=== PATIENT | female | born 1945 | race African-American/Black ===

== ENCOUNTER 2018-11-06 15:16 | Emergency (ER) | payer OTHER ==
[2018-11-06 15:32] VITALS: TEMP 98.5; BMI 20.2
--- NOTE | 2018-11-06 15:34 | PDOC ---
Rapid Medical Evaluation Time Seen by Provider: 11/06/18 15:27 Medical Evaluation: Allergies Allergy/AdvReac Type Severity Reaction Status Date / Time No Known Allergies Allergy Verified 11/06/18 15:27 11/06/18 15:27 The patient presents for palpitations and dizziness. She palpitations starting this morning. She states that she has had palpitations intermittently for years. Exam: RRR, S1S2 no m/r/g Orders: labs, ekg Pt to proceed to the ER for further evaluation Discharge Disposition - Diagnosis Palpitation - Referrals - Patient Instructions - Post Discharge Activity
--- NOTE | 2018-11-06 16:29 | PDOC ---
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 States she was cleaning this AM when she felt her heart beating abnl - states it felt like there was a fight in her chest - her heart was jumping around. Pt denies assoc cp or sob. No f/c. No cough. No abd pain. No n/v/d. No dysuria. NO LE swelling or calf cramping. Pt states symptoms resolved after about 30 min. Pt states she has felt these symptoms for the last few weeks and was admitted at [facility] for 3 days for eval. Saw Dr. Key 2 days ago and started on Toprol. Pt currently denies all complaints. PMD Dr. Washington. 11/06/18 17:22 - Physicial Exam PE: 11/06/18 17:21 Gen: aaox3, nad heart: +s1s2 reg lungs: cta b/l abd: soft, nt/nd +bs ext: no c/c/e. no calf ttp neuro: cn ii-xii grossly intact, no focal deficits, moves all extremities - Medical Decision Making 11/06/18 17:22 a/p: 73yo female with palpitations and dizziness -states dizziness felt like the room was spinning - denies ear pain or tinnitus -no cp -will check labs, tsh -will obtain orthostatic vs -will call dr. Key to discuss the case -will monitor in the ED -hx of ITP - pt with labs from prior hospitalization - will make sure at baseline. -pt currently asymptomatic. 11/06/18 17:47 cxr clear labs similar to last visit from [facility] 11/06/18 17:47 trop neg 11/06/18 18:23 tsh normal resident discussed the case with Dr. Key who recommends office visit tomorrow resident updated pt who agrees with the plan daughter at the bedside who agrees with the plan no orthostatic vs pt stable for dc to home Heart Score/ECG Review - ECG Intrepretation Comment:: 11/06/18 17:24 sinus at 62, pac, nl axis, nl interval, no acute st/t wave findings
[2018-11-06 16:42] LABS: BASO % 0.7 % (0-2.0); HEMATOCRIT 36.2 % (32.4-45.2); LYMPH % 39.1 % (8-40); MCH 31.7 pg (25.7-33.7); MEAN CELL VOLUME 95.8 fl (80-96); MEAN PLT VOLUME 9.5 fl (7.5-11.1); MONO % 7.2 % (3.8-10.2); PLATELET COUNT 100 K/MM3 (134-434); RBC 3.78 M/mm3 (3.60-5.2); RDW 13.1 % (11.6-15.6); WHITE BLOOD COUNT 2.7 K/mm3 (4.0-10.0)
--- NOTE | 2018-11-06 16:48 | PDOC ---
History of Present Illness - General Chief Complaint: Palpitations Stated Complaint: PALPITATIONS/DIZZINESS Time Seen by Provider: 11/06/18 15:27 History Source: Patient Exam Limitations: No Limitations - History of Present Illness Initial Comments: 11/06/18 16:48 73 yo F with a hx of HTN (on metoprolol), ITP (followed by Dr. Serrano; last surveillance 2 months ago), and Sjogren's disease (not currently on medication) presents to the emergency department with palpitations that occurred last night around 12 am. Per the patient, she was recently seen at [facility] for palpitations (09/29/2018) and had a negative work up for arrhythmia. Per the patient, she had concurrent dizziness with spinning sensation that was different from her previous palpitations episodes. She was cleaning her house when she had the onset of symptoms and they persisted when she went to bed and awoke this morning. Currently asymptomatic. Denies the following: fever, chills , SOB, chest pain, abdominal pain, dysuria, diarrhea, and leg pain/swelling. Allergies: NKDA Social: Denies tobacco, alcohol, and substance abuse. Past History - Past Medical History Allergies/Adverse Reactions: Allergies Allergy/AdvReac Type Severity Reaction Status Date / Time No Known Allergies Allergy Verified 11/06/18 15:27 Home Medications: Ambulatory Orders Metoprolol Succinate 12.5 mg PO DAILY 11/06/18 Cardiac Disorders: (Palpitations) COPD: No GI Disorders: Yes (DIVERTICULOSIS, GERD) - Surgical History Cardiac Surgery: Yes (ARRYTHMIA) - Suicide/Smoking/Psychosocial Hx Smoking History: Never smoked Have you smoked in the past 12 months: No Hx Alcohol Use: No Drug/Substance Use Hx: No Substance Use Type: None Review of Systems - Review of Systems Able to Perform ROS?: Yes Is the patient limited Sami proficient: No Constitutional: No: Chills, Diaphoresis, Fever, Weakness HEENTM: No: Eye Pain, Ear Pain, Nose Pain, Throat Pain, Mouth Pain Respiratory: No: Cough, Shortness of Breath, Hemoptysis Cardiac (ROS): Yes: Palpitations. No: Chest Pain, Lightheadedness, Syncope, Chest Tightness ABD/GI: No: Constipated, Diarrhea, Nausea, Rectal Bleeding, Vomiting, Tarry Stools : No: Burning, Dysuria, Hematuria Musculoskeletal: No: Back Pain, Joint Pain, Neck Pain Integumentary: No: Bruising, Erythema, Rash Neurological: Yes: Dizziness. No: Headache, Numbness, Tingling, Tremors Psychiatric: No: Change in Appetite Endocrine: No: Unexplained Weight Gain Hematologic/Lymphatic: No: Anemia *Physical Exam - Vital Signs Last Vital Signs Temp Pulse Resp BP Pulse Ox 98.5 F 65 18 123/73 99 11/06/18 15:28 11/06/18 15:28 11/06/18 15:28 11/06/18 15:28 11/06/18 15:28 - Physical Exam General Appearance: Yes: Nourished, Appropriately Dressed, Thin. No: Apparent Distress, Intoxicated HEENT: positive: EOMI, VIKY, Normal Voice, Symmetrical, Pharynx Normal, Hearing Grossly Normal. negative: Pale Conjunctivae, Scleral Icterus (R), Scleral Icterus (L), Muffled/Hoarse voice, Pharyngeal Erythema, Tonsillar Exudate, Tonsillar Erythema, Nasal Congestion, Rhinorrhea, Excessive drooling Neck: positive: Trachea midline, Supple. negative: Tender, Lymphadenopathy (R) , Lymphadenopathy (L), Tender lateral, Tender midline Respiratory/Chest: positive: Lungs Clear, Normal Breath Sounds. negative: Chest Tender, Accessory Muscle Use, Rhonchi, Stridor, Wheezing Cardiovascular: positive: Regular Rhythm, Regular Rate, S1, S2. negative: Systolic Murmur Gastrointestinal/Abdominal: positive: Normal Bowel Sounds, Flat, Soft. negative : Tender, Distended, Guarding, Rebound Lymphatic: negative: Adenopathy Musculoskeletal: positive: Normal Inspection. negative: CVA Tenderness, Vertebral Tenderness Extremity: positive: Normal Capillary Refill, Normal Inspection, Normal Range of Motion. negative: Tender Integumentary: positive: Normal Color, Dry, Warm Neurologic: positive: radial drill operator II-XII NML intact, Fully Oriented, Alert, Normal Mood/ Affect, Normal Response, Motor Strength 5/5 ED Treatment Course - LABORATORY CBC & Chemistry Diagram: 11/06/18 15:49 11/06/18 15:49 Medical Decision Making - Medical Decision Making 73 yo F with a hx of HTN (on metoprolol), ITP (followed by Dr. Serrano; last surveillance 2 months ago), and Sjogren's disease (not currently on medication) presents to the emergency department with palpitations that occurred last night around 12 am. Initial vitals: Initial Vital Signs Temp Pulse Resp BP Pulse Ox 98.5 F 65 18 123/73 99 11/06/18 15:28 11/06/18 15:28 11/06/18 15:28 11/06/18 15:28 11/06/18 15:28 Work up ddx: palpitations 2/2 arrhythmia. Laboratory Tests 11/06/18 11/06/18 11/06/18 15:49 15:49 15:49 WBC 2.7 L RBC 3.78 Hgb 12.0 Hct 36.2 MCV 95.8 MCH 31.7 MCHC 33.0 RDW 13.1 Plt Count 100 L D MPV 9.5 Absolute Neuts (auto) 1.4 L Neutrophils % 53.0 D Lymphocytes % 39.1 Monocytes % 7.2 Eosinophils % 0.0 D Basophils % 0.7 Nucleated RBC % 0 PT with INR 12.40 INR 1.05 Sodium 138 Potassium 4.9 Chloride 104 Carbon Dioxide 28 Anion Gap 5 L BUN 13.7 Creatinine 0.6 Est GFR (CKD-EPI)AfAm 103.34 Est GFR (CKD-EPI)NonAf 89.16 Random Glucose 90 Calcium 9.2 Magnesium 2.1 Total Bilirubin 0.7 AST 26 ALT 22 Alkaline Phosphatase 52 Creatine Kinase 140 Troponin I < 0.02 Total Protein 7.6 Albumin 3.6 TSH 1.30 Troponin negative. EKG shows NSR with PACs. Patient had no ST elevation or depression. Patient continues to remain asymptomatic. Spoke to patient's open tenter operator Dr. Mera. She was seen in the office 2 days prior to presentation. She had an EKG showing PACs in the office with her last holter monitor 2-3 years ago that showed no sustained events. cardiac MRI in [address] Mera, will see the patient tomorrow and is comfortable with discharge from the ED with negative troponin. Patient orthostatics: Supine: Pulse 58, left radial pulse strong/regular. O2 sat 100% on RA. RR 21. BP 134/71 on left arm. 90 mAP Sitting: pulse 65 radial left strong/regular pulse. O2 sat 100% on RA. bp 140/ 89 L arm, 104 MAP Standing: Pulse 52, left radial strong/regular pulse. O2 sat 100% on room air. 128/85 L arm. 98 mAP. Patient to be discharged with f/u with her open tenter operator. Dispo; Discharge *DC/Admit/Observation/Transfer Diagnosis at time of Disposition: Palpitation - Discharge Dispostion Disposition: HOME Decision to Admit order: No - Referrals Referrals: Deepa Mera MD [Non Staff, Medical] - - Patient Instructions Printed Discharge Instructions: DI for Arrhythmias, DI for Palpitations Additional Instructions: You were seen in the emergency department for your palpitations. Your EKG was within normal limits and you had a negative troponin. I spoke to your open tenter operator who states she wants to see you tomorrow for follow up. Please return to the emergency department if you have worsening pain or new concerning symptoms. Please keep to your open tenter operator appointment. Thank you. - Post Discharge Activity
[2018-11-06 17:10] LABS: ALBUMIN 3.6 g/dl (3.4-5.0); ALK PHOS 52 U/L (45-117); ANION GAP 5 MMOL/L (8-16); BILIRUBIN,TOTAL 0.7 mg/dL (0.2-1); BLOOD UREA NITROGEN 13.7 mg/dL (7-18); CALCIUM 9.2 mg/dL (8.5-10.1); CHLORIDE 104 mmol/L (98-107); CO2 28 mmol/L (21-32); CREATININE 0.6 mg/dL (0.55-1.3); GLUCOSE,RANDOM 90 mg/dL (74-106); MAGNESIUM 2.1 mg/dL (1.8-2.4); POTASSIUM 4.9 mmol/L (3.5-5.1); SGOT/AST 26 U/L (15-37); SGPT/ALT 22 U/L (13-61); SODIUM 138 mmol/L (136-145); TOT PROT 7.6 g/dl (6.4-8.2)
[2018-11-06 17:27] LABS: INR 1.05 (0.83-1.09); PROTHROMBIN TIME (PATIENT) 12.4 SEC (9.7-13.0)
[2018-11-06 18:30] VITALS: BP 136/78; PULSE 60
--- NOTE | 2018-11-07 15:29 | EKG ---
Test Reason : Blood Pressure : / mmHG Vent. Rate : 062 BPM Atrial Rate : 062 BPM P-R Int : 170 ms QRS Dur : 068 ms QT Int : 394 ms P-R-T Axes : 078 073 065 degrees QTc Int : 399 ms SINUS RHYTHM WITH PREMATURE ATRIAL COMPLEXES WITH ABERRANT CONDUCTION POSSIBLE LEFT ATRIAL ENLARGEMENT BORDERLINE ECG WHEN COMPARED WITH ECG OF 22-JAN-2014 09:02, ABERRANT CONDUCTION IS NOW PRESENT Confirmed by HUMERA YOON, LUCAS ([id number]) on 11/07/2018 3:29:30 PM Referred By: Confirmed By:LUCAS GRUBBS MD
== END 2018-11-06 18:46 | disposition home or self-care (01) ==
LOC: JER 15:16
DX: R00.2 Palpitations (principal); I10 Essential (primary) hypertension; D69.3 Immune thrombocytopenic purpura; M35.00 Sjogren syndrome, unspecified
CPT/HCPCS: 36415; 71046-TC-FY; 80053; 82550; 83735; 84443; 84484; 85025; 85610; 93005; 93010; 99284-25

== ENCOUNTER 2019-03-04 19:50 | Emergency (ER) | payer OTHER ==
[2019-03-04 20:12] VITALS: BP 97/53; PULSE 84; TEMP 99.3
--- NOTE | 2019-03-04 21:02 | PDOC ---
History of Present Illness - General Chief Complaint: Cold Symptoms Stated Complaint: COUGH Time Seen by Provider: 03/04/19 20:17 History Source: Patient Exam Limitations: No Limitations - History of Present Illness Initial Comments: 03/04/19 20:54 73-year-old female brought in for evaluation of white productive cough for the past 2 to 3 days along with generalized fatigue. Patient has no complaints of fever, abdominal pain, lower extremity edema, headache, recent travel, recent illness or recent change in medications. Patient denies smoking in the home Is this a multiple visit Asthma Patient?: No Timing/Duration: reports: other (2-3 days) Severity: reports: mild Associated Symptoms: reports: cough, other (Fatigue) Past History - Travel Traveled outside of the country in the last 30 days: No Close contact w/someone who was outside of country & ill: No - Past Medical History Allergies/Adverse Reactions: Allergies Allergy/AdvReac Type Severity Reaction Status Date / Time No Known Allergies Allergy Verified 11/06/18 15:27 Home Medications: Ambulatory Orders Metoprolol Succinate 12.5 mg PO DAILY 11/06/18 Cardiac Disorders: (Palpitations) COPD: No GI Disorders: Yes (DIVERTICULOSIS, GERD) Other medical history: ITP - Surgical History Cardiac Surgery: Yes (ARRYTHMIA) - Psycho Social/Smoking Cessation Hx Smoking History: Never smoked Have you smoked in the past 12 months: No Hx Alcohol Use: No Drug/Substance Use Hx: No Substance Use Type: None Patient Lives Alone: No Lives with/in: Daughter Review of Systems - Review of Systems Able to Perform ROS?: Yes Constitutional: Yes: Weakness, Weight Stable. No: Chills, Fever, Loss of Appetite HEENTM: No: Symptoms Reported Respiratory: Yes: Cough, Productive cough Cardiac (ROS): No: Symptoms Reported ABD/GI: No: Symptoms Reported : No: Symptoms Reported Musculoskeletal: No: Symptoms Reported Integumentary: No: Symptoms Reported Neurological: Yes: Weakness (Mild generalized) Hematologic/Lymphatic: No: Symptoms Reported *Physical Exam - Vital Signs Last Vital Signs Temp Pulse Resp BP Pulse Ox 99.3 F 84 20 97/53 L 98 03/04/19 20:07 03/04/19 20:07 03/04/19 20:07 03/04/19 20:07 03/04/19 20:07 - Physical Exam General Appearance: Yes: Nourished, Appropriately Dressed. No: Apparent Distress HEENT: positive: TMs Normal, Pharynx Normal. negative: Pale Conjunctivae Neck: positive: Supple Respiratory/Chest: positive: Crackles (Inspiratory crackles to right and left lower base). negative: Respiratory Distress, Accessory Muscle Use Cardiovascular: positive: Regular Rhythm, Regular Rate. negative: Murmur Gastrointestinal/Abdominal: positive: Soft. negative: Tenderness Extremity: positive: Normal Inspection Integumentary: positive: Normal Color, Warm, Moist Neurologic: positive: Motor Strength 5/5 (Ambulatory) ED Treatment Course - RADIOLOGY Radiology Studies Ordered: Category Date Time Status CHEST PA & LAT [RAD] Stat Radiology 03/04/19 20:30 Taken Medical Decision Making - Medical Decision Making 03/04/19 21:02 Chief complaint: Cough and fatigue for the past 2 to 3 days. Exam. Patient with inspiratory crackles noted to left and right bases. Plan: Chest x-ray. 03/04/19 21:26 Chest x-ray negative for acute pathology. Patient will be discharged home with a Z-Wilder for treatment of bronchitis. Discharge - Discharge Information Problems reviewed: Yes Clinical Impression/Diagnosis: Bronchitis Condition: Good Disposition: HOME - Follow up/Referral - Patient Discharge Instructions Patient Printed Discharge Instructions: DI for Acute Bronchitis Additional Instructions: Drink plenty of fluids. Eat well-balanced meals throughout the day. Take antibiotics as prescribed. Keep nasal passages clear cover mouth when coughing and wash hands frequently. - Post Discharge Activity
== END 2019-03-04 21:50 | disposition home or self-care (01) ==
LOC: JERFT 19:50
DX: J40 Bronchitis, not specified as acute or chronic (principal); R53.1 Weakness; R00.2 Palpitations; K21.9 Gastro-esophageal reflux disease without esophagitis; I49.9 Cardiac arrhythmia, unspecified; D69.3 Immune thrombocytopenic purpura
CPT/HCPCS: 71046-TC-FY; 99282-25

== ENCOUNTER 2019-04-27 09:14 | Emergency (ER) | payer OTHER ==
[2019-04-27 09:28] VITALS: TEMP 98; BMI 20.2
[2019-04-27] MEDS ORDERED: METOPROLOL TARTRATE 25 MG TABLET (FP) PO ONE (10:02)
[2019-04-27] MEDS ORDERED: METOPROLOL TARTRATE 25 MG TABLET (FP) ONE (10:19)
--- NOTE | 2019-04-27 10:20 | PDOC ---
Documentation entered by Anthony Hoang SCRIBE, acting as scribe for Dana Morejon MD. Dana Morejon MD: This documentation has been prepared by the Viktor harper Daniel, SCRIBE, under my direction and personally reviewed by me in its entirety. I confirm that the documentation accurately reflects all work, treatment, procedures, and medical decision making performed by me. History of Present Illness - General Chief Complaint: Palpitations Stated Complaint: PALPITATIONS/DIZZINESS Time Seen by Provider: 04/27/19 09:35 History Source: Patient Exam Limitations: No Limitations - History of Present Illness Initial Comments: 04/27/19 09:53 The patient is a 74 year old female with a past medical history of ITP, HTN, and Sjogrens syndrome, GERD here today for evaluation of room spinning dizziness and palpitations, since resolved. The patient reports that between 12- 3am last night she developed room spinning dizziness, palpitations, and a sharp chest pain that went across her chest and only lasted for a few seconds. She states that her symptoms resolved on their own and notes previous episodes. She also notes that she has had 1 week of ringing in the ears and had bronchitis a few weeks ago. Patient reports that she currently has no symptoms. Patient denies headache. Denies fever, chills. Denies shortness of breath. Denies nausea, vomiting, diarrhea, abdominal pain. Denies lower extremity edema. Denies urinary symptoms. Denies neurologic symptoms. Denies travel. Allergies: NKA Social history: Denies tobacco, alcohol, and illicit drug use. 04/27/19 10:18 Past History - Past Medical History Allergies/Adverse Reactions: Allergies Allergy/AdvReac Type Severity Reaction Status Date / Time No Known Allergies Allergy Verified 04/27/19 09:19 Home Medications: Ambulatory Orders Metoprolol Succinate 12.5 mg PO DAILY 11/06/18 Azithromycin [Zithromax Tri-Wilder (3 DAYS) -] 500 mg PO DAILY #3 tablet 03/04/19 Cardiac Disorders: (Palpitations) COPD: No Dementia: Yes (alzheimers) GI Disorders: Yes (DIVERTICULOSIS, GERD) - Surgical History Cardiac Surgery: Yes (ARRYTHMIA) - Psycho Social/Smoking Cessation Hx Smoking History: Never smoked Have you smoked in the past 12 months: No Hx Alcohol Use: No Drug/Substance Use Hx: No Substance Use Type: None Review of Systems - Review of Systems Able to Perform ROS?: Yes Comments:: 04/27/19 09:53 Constitutional: no fevers or chills. No weakness HEENT: +room spinning dizziness. no headache. No congestion. No visual/hearing disturbances. CVS: +chest pain. +palpitations. no syncope. Resp: no sob. No cough. Gastrointestinal: no abdominal pain, nausea, vomiting, diarrhea. Genitourinary: no urinary sx, hematuria. MUSCULOSKELETAL: No joint pain and swelling. No neck or back pain. SKIN: no redness or skin changes, no discharge, no rash. No wounds. Hematologic: no easy bruising/bleeding. NEUROLOGIC: No headache, dizziness, LOC or altered mental status. No weakness, numbness or tingling. Psych: no anxiety or depression Allergic/Immunologic: no allergies All other systems reviewed and negative, or as documented in HPI. *Physical Exam - Vital Signs Last Vital Signs Temp Pulse Resp BP Pulse Ox 98 F 78 18 144/78 99 04/27/19 09:16 04/27/19 09:16 04/27/19 09:16 04/27/19 09:16 04/27/19 09:16 - Physical Exam 04/27/19 09:54 General: Well appearing, awake and alert, NAD. HEENT: NCAT, PERRL, EOMI, clear conjunctiva, anicteric, moist mucus membranes, oropharynx clear. Airway patent, normal phonation. Uvula midline. no tonsillar hypertrophy. No sinus tenderness, TM clear, no pinna tenderness to manipulation. Neck: neck supple, FROM Resp: CTAB, normal and even respirations, no respiratory distress CVS: RRR, no murmurs, 2+ peripheral pulses throughout, no peripheral edema Abdomen: soft, NTND, no rebound or guarding. No CVAT. Back: nontender, normal inspection and ROM MSK: no edema, CONTRERAS x4, ROM intact. No clubbing or cyanosis. normal bulk and tone. Extremities: no calf tenderness Neuro: Alert, oriented to person time and place. No carotid bruit, CN II-XII grossly intact. Strength prox and distally 5/5 throughout. Sensation grossly intact to light touch. CONTRERAS x4. No cerebellar signs, no dysmetria, bilateral finger to nose and heel to acosta equal and symmetric. Speech clear. Psych: Calm and cooperative Skin: warm and well perfused, cap refill <2 sec, normal color Heart Score/ECG Review #1 ECG reviewed & interpreted by me at: 09:30 General ECG Interpretation: Sinus Rhythm, Normal Rate, Normal Intervals 04/27/19 10:26 EKG normal sinus rhythm at 61 bpm, no interval abnormalities, narrow QRS, ST and T wave segments and morphology normal. ED Treatment Course - LABORATORY CBC & Chemistry Diagram: 04/27/19 10:16 04/27/19 11:07 - RADIOLOGY Radiology Studies Ordered: Category Date Time Status HEAD CT WITHOUT CONTRAST [CT] Stat CT Scan 04/27/19 09:48 Ordered CHEST PA & LAT [RAD] Stat Radiology 04/27/19 09:48 Ordered Medical Decision Making - Medical Decision Making 04/27/19 10:18 Vital Signs Temp Pulse Resp BP Pulse Ox 98 F 78 18 144/78 99 04/27/19 09:16 04/27/19 09:16 04/27/19 09:16 04/27/19 09:16 04/27/19 09:16 DDx chest pain: ACS, coronary vasospasm, NSTEMI, arrhythmia, unstable angina, PE , dissection, PUD, esophageal spasm, GERD, gastritis, costochondritis, pneumonia , pleurisy, pericarditis/myocarditis. dehydration, electrolyte/metabolic derangements. Considered but clinically doubt based on HPI and PE: Low suspicion for pulmonary embolism or dissection. - vertigo, BPPV, labrynthitis, central vertigo/cva, (though unlikely with normal neuro exam) EKG normal sinus rhythm, no interval abnormalities, narrow QRS, ST and T wave segments and morphology normal, unchanged from prior no cp or sob labs and lytes trop head ct to eval for mass/cva/bleed, given sx and age. last imaging 2014 cxr 04/27/19 11:44 CT head negative for acute pathology, bleed, stroke. Chest x-ray is also clear unremarkable. Electrolytes and labs are within normal limits, troponin is negative x1 which is reassuring. No chest pain or shortness of breath, doubt cardiac or ACS. No focal neurologic deficits, no active vertigo or dizziness. Patient feels improved. Patient was given her home dose of metoprolol 12.5 this morning which she had missed since coming to the ED. gait stable, ambulatory w/o difficulty. She is asymptomatic Pt to be discharged in stable condition. Patient and family made aware of clinical impression, treatment recommendations and disposition plan, return precautions discussed (including but not limited to new or persistent/worsening symptoms, pain, fevers, or signs of infection, chest pain, respiratory distress , inability to tolerate oral intake, dehydration, syncope, or neurologic changes ). Follow up with PMD and/or executive services administrator specialist as recommended, follow up information provided, take medications as instructed for duration of time. continue with supportive care, avoid triggers and precipitants. All questions answered to patient's satisfaction and expressed understanding and comfort with this. At the time of discharge, the patient is alert, clinically improved, tolerating po and verbalizes understanding of instructions, satisfied with the care received and felt comfortable with the plan. Patient does not suffer from an acute life-threatening medical condition at this time and is safe for outpatient follow-up. 04/27/19 11:46 04/27/19 13:21 Discharge - Discharge Information Problems reviewed: Yes Clinical Impression/Diagnosis: Dizziness, Palpitations Condition: Improved Disposition: HOME - Admission No - Follow up/Referral Referrals: Usha Pretty [Primary Care Provider] - Deepa Mera MD [Non Staff, Medical] - - Patient Discharge Instructions Patient Printed Discharge Instructions: Combating Dizziness in Older Adults, Vertigo, DI for Palpitations Additional Instructions: 1) Please follow-up with your primary care doctor in the next 1-2 days. Please call tomorrow for for any urgent issues. you should also follow up with your executive services administrator, Dr Buckner. 2) You were given a copy of the tests performed today. Please bring the results with you and review them with your primary care doctor. Your laboratory / imaging results were normal, including CT head and chest x ray 3) If you have any worsening of symptoms or any other concerns please return to the ED immediately. Return if worsening symptoms including fevers, headache, vomiting, visual or hearing disturbances, abdominal pain, chest pain, shortness of breath, syncope, dehydration, inability to take things by mouth/vomiting, altered mental status, or worsening concerning symptoms. 4) Please continue taking your home medications as directed. Stay well hydrated and rest adequately. Make an appointment. If you cannot follow-up with your primary care doctor please return to the ED - Post Discharge Activity
[2019-04-27 10:33] LABS: BASO % 0.8 % (0-2.0); HEMATOCRIT 35.7 % (32.4-45.2); HEMOGLOBIN 12.1 GM/dL (10.7-15.3); LYMPH % 31.9 % (8-40); MCH 32.9 pg (25.7-33.7); MCHC 33.9 g/dl (32.0-36.0); MEAN CELL VOLUME 97.3 fl (80-96); MONO % 7.5 % (3.8-10.2); NEUT % 59.8 % (42.8-82.8); PLATELET COUNT 132 K/MM3 (134-434); RBC 3.67 M/mm3 (3.60-5.2); RDW 14.3 % (11.6-15.6); WHITE BLOOD COUNT 3.3 K/mm3 (4.0-10.0)
[2019-04-27 12:55] LABS: ALBUMIN 3.3 g/dl (3.4-5.0); ALK PHOS 76 U/L (45-117); ANION GAP 5 MMOL/L (8-16); BILIRUBIN,TOTAL 0.4 mg/dL (0.2-1); BLOOD UREA NITROGEN 12.3 mg/dL (7-18); CALCIUM 8.6 mg/dL (8.5-10.1); CHLORIDE 107 mmol/L (98-107); CO2 30 mmol/L (21-32); CREATININE 0.6 mg/dL (0.55-1.3); GLUCOSE,RANDOM 88 mg/dL (74-106); MAGNESIUM 2.2 mg/dL (1.8-2.4); POTASSIUM 4.4 mmol/L (3.5-5.1); SGOT/AST 16 U/L (15-37); SGPT/ALT 19 U/L (13-61); SODIUM 141 mmol/L (136-145); TOT PROT 7.3 g/dl (6.4-8.2)
[2019-04-27 13:19] VITALS: BP 130/73; PULSE 56
--- NOTE | 2019-04-28 09:29 | EKG ---
Test Reason : Blood Pressure : / mmHG Vent. Rate : 061 BPM Atrial Rate : 061 BPM P-R Int : 180 ms QRS Dur : 070 ms QT Int : 394 ms P-R-T Axes : 070 063 065 degrees QTc Int : 396 ms POOR DATA QUALITY, INTERPRETATION MAY BE ADVERSELY AFFECTED NORMAL SINUS RHYTHM POSSIBLE LEFT ATRIAL ENLARGEMENT BORDERLINE ECG WHEN COMPARED WITH ECG OF 06-NOV-2018 15:22, ABERRANT CONDUCTION IS NO LONGER PRESENT Confirmed by Jose Alejandro Ruth ([id number]) on 04/28/2019 9:28:37 AM Referred By: Confirmed By:Jose Alejandro Ruth
== END 2019-04-27 13:20 | disposition home or self-care (01) ==
LOC: JER 09:14
DX: R00.2 Palpitations (principal); R42 Dizziness and giddiness; G30.8 Other Alzheimer's disease; F02.80 Dementia in other diseases classified elsewhere, unspecified severity, without behavioral disturbance, psychotic disturbance, mood disturbance, and anxiety; K21.9 Gastro-esophageal reflux disease without esophagitis; I10 Essential (primary) hypertension; M35.00 Sjogren syndrome, unspecified
CPT/HCPCS: 36415; 70450-TC; 71046-TC-FY; 80053; 82550; 83735; 84484; 85025; 93005; 93010; 99285-25

== ENCOUNTER 2019-09-10 18:40 | Emergency (ER) | payer OTHER ==
[2019-09-10 18:46] VITALS: BMI 18.3
--- NOTE | 2019-09-10 18:47 | PDOC ---
Rapid Medical Evaluation Time Seen by Provider: 09/10/19 18:43 Medical Evaluation: Allergies Allergy/AdvReac Type Severity Reaction Status Date / Time No Known Allergies Allergy Verified 04/27/19 09:19 09/10/19 18:43 74 Year old female GERD, R sided valve regurg, ITP, RA, scrogrens presenting to the ED with dizziness and palpitations. Started today last about 5-7 mins and reside on there own. Also complaining of GERD denies CP SOB fever chills PE Chest CTA RRR Neuro grossly intact Plan EKG Cardiac workup CXR Pt to precede to Ed for further eval and treatment at the discretion of ED provider.
--- NOTE | 2019-09-10 19:09 | PDOC ---
History of Present Illness - General Chief Complaint: Palpitations Stated Complaint: HEART PROBLEM Time Seen by Provider: 09/10/19 18:43 - History of Present Illness Initial Comments: The patient is a 74 year old female with a past medical history of ITP, HTN, and Sjogrens syndrome, GERD, tricuspid regurg who presents for evaluation of a gas taste in her mouth with associated chest discomfort and dizziness that began approximately 1 hour prior to arrival. The symptoms have since resolved. They started at rest, lasted for approximately 10 minutes and resolved spontaneously. She did not take anything for her pain. She has had similar symptoms before in the past but is unsure of what might be causing them. She denies fevers/chills, recent illness, MURRAY, vision changes, current chest pain, SOB, cough, abdominal pain, N/V/C, dysuria, hematuria, blood in her stool, or changes in sensation. 09/10/19 19:09 Past History - Medical History Allergies/Adverse Reactions: Allergies Allergy/AdvReac Type Severity Reaction Status Date / Time No Known Allergies Allergy Verified 04/27/19 09:19 Home Medications: Ambulatory Orders Metoprolol Succinate 12.5 mg PO DAILY 11/06/18 Azithromycin [Zithromax Tri-Wilder (3 DAYS) -] 500 mg PO DAILY #3 tablet 03/04/19 Cardiac Disorders: (Palpitations) COPD: No Dementia: Yes (alzheimers) GI Disorders: Yes (DIVERTICULOSIS, GERD) - Surgical History Cardiac Surgery: Yes (ARRYTHMIA) - Immunization History Immunization Up to Date: No - Psycho-Social/Smoking History Smoking History: Never smoked Have you smoked in the past 12 months: No Information on smoking cessation initiated: No - Substance Abuse Hx (Audit-C & DAST Scrn) How often the patient has a drink containing alcohol: Never Score: In Men: 4 or > Positive; In Women: 3 or > Positive: 0 Screen Result (Pos requires Nsg. Audit-10AR): Negative In the last yr the pt used illegal drug/Rx for NonMed reason: No Score: Yes response is considered Positive: 0 Screen Result (Positive result requires Nsg. DAST-10): Negative Review of Systems - Review of Systems Able to Perform ROS?: Yes Comments:: GENERAL/CONSTITUTIONAL: No fever or chills. No weakness HEAD, EYES, EARS, NOSE AND THROAT: No change in vision. No change in hearing. No sore throat CARDIOVASCULAR: No shortness of breath RESPIRATORY: Denies cough, hemoptysis GASTROINTESTINAL: No nausea, vomiting, constipation GENITOURINARY: No dysuria, frequency, or change in urination MUSCULOSKELETAL: No joint or muscle swelling or pain. No neck or back pain SKIN: No rash NEUROLOGIC: No headache, vertigo, loss of consciousness, or change in strength /sensation ENDOCRINE: No increased thirst. No abnormal weight change HEMATOLOGIC/LYMPHATIC: No easy bleeding, or history of blood clots ALLERGIC/IMMUNOLOGIC: No hives or skin allergy 09/10/19 19:08 Is the patient limited Japanese proficient: No *Physical Exam - Vital Signs Last Vital Signs Temp Pulse Resp BP Pulse Ox 98.4 F 65 16 122/80 100 09/10/19 18:44 09/10/19 18:44 09/10/19 18:44 09/10/19 18:44 09/10/19 18:44 - Physical Exam GENERAL: Awake, alert, and oriented to person/place/time, in no acute distress HEAD: No signs of trauma, normocephalic, atraumatic EYES: PERRLA, EOMI, sclera anicteric, conjunctiva clear ENT: Hearing grossly normal, nares patent, oropharynx clear without exudates. Moist mucosa LUNGS: No distress, speaks in full sentences, clear to auscultation bilaterally HEART: Regular rate and rhythm, normal S1 and S2, no murmurs appreciated, peripheral pulses normal and equal bilaterally ABDOMEN: Soft, nontender, normoactive bowel sounds. No guarding, no rebound. No masses EXTREMITIES: Normal inspection, Normal range of motion, no edema. No clubbing or cyanosis NEUROLOGICAL: Cranial nerves II through XII grossly intact. Normal speech, no focal sensorimotor deficits SKIN: Warm, Dry 09/10/19 19:08 ED Treatment Course - LABORATORY CBC & Chemistry Diagram: 09/10/19 19:45 09/10/19 19:45 Medical Decision Making - Medical Decision Making The patient is a 74 year old female with a past medical history of ITP, HTN, and Sjogrens syndrome, GERD, tricuspid regurg who presents for evaluation of a gas taste in her mouth with associated chest discomfort and dizziness that began approximately 1 hour prior to arrival. Ddx: GERD, acs, low suspicion for PNA, not likely COVID Pt asymptomatic at this time Plan for two trop at this time ED Course CMP, Cardiac profile, CBC ECG CXR ECG w/ sinus bradycardia; HR 58; QTc 386; no axis deviation; no acute ischemic changes 09/10/19 19:48 Leukopenia noted, stable from previous No anemia at this time 09/10/19 20:48 Initial Trop I neg Lytes overall unremarkable No LENNOX LFTs unremarkable 09/10/19 23:27 Repeat Trop I neg CXR w/o focal PNA, PNX, or vascular congestion Pt continues to be asymptomatic Symptoms most likely related to GERD Plan for D/C w/ PCP/GI f/u Discharge instructions and return precautions given Patient in agreement and verbalized understanding Dispo: Home 09/10/19 23:37 Discharge - Discharge Information Problems reviewed: Yes Clinical Impression/Diagnosis: Acid reflux Qualifiers: Esophagitis presence: esophagitis presence not specified Qualified Code(s): K21.9 - Gastro-esophageal reflux disease without esophagitis Condition: Stable Disposition: HOME - Admission No - Follow up/Referral Referrals: ON STAFF,NOT [Primary Care Provider] - Tone De León MD [Staff Physician] - Mckenna Hansen MD [Staff Physician] - - Patient Discharge Instructions Patient Printed Discharge Instructions: DI for Gastroesophageal Reflux Disease (GERD), GERD Diet Additional Instructions: You were seen in the Emergency Department for evaluation palpitations and a gassy taste in your mouth. Your symptoms are likely related to stomach inflammation. Review the handouts provided at discharge. Gastroenterology follow up was provided, follow up with them within a month. Follow up with your primary care provider. Bananas, Apples, Rice, and [place] (BRAT) diets may be beneficial to alleviating your symptoms. Avoid heavily flavored foods and spicy foods. Start with water/gatorade sips and advance as tolerated. If you try to incorporate solids and vomit, go back to liquids and try advancing slowly again over several hours. Return to the Emergency Department if you develop fevers/chills, chest pain, trouble breathing, inability to tolerate fluids, blood in your stool/vomit, worsening pain, worsening symptoms, or any new/concerning symptoms. - Post Discharge Activity
[2019-09-10 20:12] LABS: BASO % 0.7 % (0-2.0); EOS % 0.2 % (0-4.5); HEMATOCRIT 36.8 % (32.4-45.2); HEMOGLOBIN 12.1 GM/dL (10.7-15.3); MCHC 32.9 g/dl (32.0-36.0); MEAN CELL VOLUME 97.1 fl (80-96); MEAN PLT VOLUME 9.9 fl (7.5-11.1); NEUT % 49.1 % (42.8-82.8); PLATELET COUNT 82 K/MM3 (134-434); RBC 3.79 M/mm3 (3.60-5.2); WHITE BLOOD COUNT 3.2 K/mm3 (4.0-10.0)
--- NOTE | 2019-09-10 20:36 | PDOC ---
Documentation entered by Mary Hernandez SCRIBE, acting as scribe for Barbara Urrutia MD. Barbara Urrutia MD: This documentation has been prepared by the Mary harper Nirvannie, SCRIBE, under my direction and personally reviewed by me in its entirety. I confirm that the documentation accurately reflects all work, treatment, procedures, and medical decision making performed by me. Attending Attestation - Resident Resident Name: [email or web address] - ED Attending Attestation I have performed the following: I have examined & evaluated the patient, The case was reviewed & discussed with the resident, I agree w/resident's findings & plan, Exceptions are as noted - HPI HPI: 09/10/19 19:40 The patient is a 74 year old female with a significant past medical history of ITP, HTN, and Sjogrens syndrome, GERD, tricuspid regurgitation who presents to the ED with 1 hour of chest/upper abdominal discomfort, dizziness, and gas- like taste to the mouth. Per patient, her symptoms spontaneously resolved with rest. She notes similar symptoms without formal diagnosis. Denies any further intervention. She denies any abdominal pain, nausea, or vomiting. States she took a medication for constipation prior to symptom onset and thinks her symptoms might have been related to that. Allergies: NKDA - Physicial Exam PE: 09/10/19 20:32 General: well appearing, NAD HEENT: mmm, NCAT Chest: CTAB, good air entry, no wheezes rales or rhonchi CVS: + s1 s2, RRR Abdomen: soft, nt, no rebound, no guarding Extremities: warm and well perfused, FROM, trace LE pitting edema Neuro: awake, alert, responds to questions appropriately, no focal deficits - Medical Decision Making 09/10/19 20:34 74 yo F with episode of atypical chest pain/upper abdominal pain, now resolved and patient without any complaints, EKG sinus without ischemic changes, lower suspicion for ACS however given age and medical history will check CE's x2. More likely 2/2 constipation and laxative/stool softener use. No infectious complaints to suggest PNA. Plan: -labs -cxr -reassess This clinical encounter is taking place during a federal and state health care emergency attributable to the novel [place] Virus pandemic. The [employer] of the Department of Health and Human Services has declared, pursuant to the Public Health Service Act 319F-3 (42 U.S.C. 247d-6d), that a covered persons activities related to medical countermeasures against COVID-19 will be immune from liability under Federal and State law. 09/10/19 23:44 Labs and imaging reviewed. Patient still without symptoms. 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 Patient states she does not live alone and there is family that is able to meet her at home. Discharge - Discharge Information Problems reviewed: Yes Clinical Impression/Diagnosis: Acid reflux Qualifiers: Esophagitis presence: esophagitis presence not specified Qualified Code(s): K21.9 - Gastro-esophageal reflux disease without esophagitis Condition: Stable Disposition: HOME - Follow up/Referral Referrals: Tone De León MD [Staff Physician] - Mckenna Hansen MD [Staff Physician] - ON STAFF,NOT [Primary Care Provider] - - Patient Discharge Instructions Patient Printed Discharge Instructions: DI for Gastroesophageal Reflux Disease (GERD), GERD Diet Additional Instructions: You were seen in the Emergency Department for evaluation palpitations and a gassy taste in your mouth. Your symptoms are likely related to stomach inflammation. Review the handouts provided at discharge. Gastroenterology follow up was provided, follow up with them within a month. Follow up with your primary care provider. Bananas, Apples, Rice, and [place] (BRAT) diets may be beneficial to alleviating your symptoms. Avoid heavily flavored foods and spicy foods. Start with water/gatorade sips and advance as tolerated. If you try to incorporate solids and vomit, go back to liquids and try advancing slowly again over several hours. Return to the Emergency Department if you develop fevers/chills, chest pain, trouble breathing, inability to tolerate fluids, blood in your stool/vomit, worsening pain, worsening symptoms, or any new/concerning symptoms. - Post Discharge Activity
[2019-09-10 20:50] LABS: ALBUMIN 3.6 g/dl (3.4-5.0); ALK PHOS 52 U/L (45-117); ANION GAP 6 MMOL/L (8-16); BILIRUBIN,TOTAL 0.4 mg/dL (0.2-1); BLOOD UREA NITROGEN 14.8 mg/dL (7-18); CHLORIDE 106 mmol/L (98-107); CO2 25 mmol/L (21-32); CREATININE 0.7 mg/dL (0.55-1.3); GLUCOSE,RANDOM 86 mg/dL (74-106); POTASSIUM 4.8 mmol/L (3.5-5.1); SGOT/AST 25 U/L (15-37); SGPT/ALT 18 U/L (13-61); SODIUM 138 mmol/L (136-145); TOT PROT 7.7 g/dl (6.4-8.2)
[2019-09-11 04:50] VITALS: BP 129/74; PULSE 81; TEMP 97.3
--- NOTE | 2019-09-11 11:53 | EKG ---
Test Reason : Blood Pressure : / mmHG Vent. Rate : 058 BPM Atrial Rate : 058 BPM P-R Int : 180 ms QRS Dur : 074 ms QT Int : 394 ms P-R-T Axes : 061 060 061 degrees QTc Int : 386 ms POOR DATA QUALITY, INTERPRETATION MAY BE ADVERSELY AFFECTED SINUS BRADYCARDIA OTHERWISE NORMAL ECG WHEN COMPARED WITH ECG OF 27-APR-2019 09:29, NO SIGNIFICANT CHANGE WAS FOUND Confirmed by HUMERA YOON, LUCAS ([id number]) on 09/11/2019 11:52:54 AM Referred By: Confirmed By:LUCAS GRUBBS MD
== END 2019-09-11 01:43 | disposition home or self-care (01) ==
LOC: JER 18:40
DX: K21.9 Gastro-esophageal reflux disease without esophagitis (principal)
CPT/HCPCS: 36415; 71045-TC-FY; 80053; 82550; 84484; 85025; 93005; 93010; 99285-25

== ENCOUNTER 2020-07-18 13:39 | Emergency (ER) | payer OTHER ==
[2020-07-18 13:43] VITALS: TEMP 98.1; BMI 24.0
[2020-07-18 15:54] VITALS: BP 143/76; PULSE 54
[2020-07-18 16:10] LABS: BASO % 0.6 % (0-2.0); EOS % 0.9 % (0-4.5); HEMATOCRIT 37.8 % (32.4-45.2); HEMOGLOBIN 12.3 GM/dL (10.7-15.3); LYMPH % 44.7 % (8-40); MCH 32.2 pg (25.7-33.7); MCHC 32.4 g/dl (32.0-36.0); MEAN CELL VOLUME 99.3 fl (80-96); MEAN PLT VOLUME 9.5 fl (7.5-11.1); MONO % 10.5 % (3.8-10.2); NEUT % 43.3 % (42.8-82.8); PLATELET COUNT 98 K/MM3 (134-434); RBC 3.81 M/mm3 (3.60-5.2); RDW 13.7 % (11.6-15.6); WHITE BLOOD COUNT 3.6 K/mm3 (4.0-10.0)
[2020-07-18 16:22] LABS: CHLORIDE 108 mmol/L (98-107); SODIUM 141 mmol/L (136-145)
[2020-07-18 16:24] LABS: ALBUMIN 3.6 g/dl (3.4-5.0); ANION GAP 5 MMOL/L (8-16); BLOOD UREA NITROGEN 14.8 mg/dL (7-18); CALCIUM 8.6 mg/dL (8.5-10.1); CO2 28 mmol/L (21-32); GLUCOSE,RANDOM 77 mg/dL (74-106)
[2020-07-18 16:27] LABS: SGOT/AST 26 U/L (15-37); SGPT/ALT 21 U/L (13-61)
[2020-07-18 16:28] LABS: CREATININE 0.6 mg/dL (0.55-1.3)
[2020-07-18 16:29] LABS: BILIRUBIN,TOTAL 0.6 mg/dL (0.2-1); TOT PROT 7.7 g/dl (6.4-8.2)
[2020-07-18 16:30] LABS: ALK PHOS 62 U/L (45-117)
[2020-07-18] MEDS ORDERED: MECLIZINE HCL 25 MG TABLET (FP) PO ONE (16:41)
[2020-07-18] MEDS ORDERED: MECLIZINE HCL 25 MG TABLET (FP) ONE (16:45)
== END 2020-07-18 18:50 | disposition home or self-care (01) ==
LOC: JER 13:39
DX: R42 Dizziness and giddiness (principal)
CPT/HCPCS: 36415; 70450-TC; 71045-TC-FY; 80053; 82550; 84484; 85025; 93005; 93010; 99285-25